=== PATIENT | female | born 1980 | race Caucasian/White ===

== ENCOUNTER 2016-06-17 07:10 | Day surgery (SDC) ==
[2016-06-15 15:45] LABS: AGAP 13; ALBUMIN 4.4 g/dL (3.5-5.0); ALKALINE PHOSPHATASE 51 U/L (32-104); BUN 9 mg/dL (8-22); CALCIUM 9.6 mg/dL (8.8-10.2); CHLORIDE 101 mmol/L (98-107); COSMO 281; GOT 41 U/L (10-30); GPT 46 U/L (10-36); POTASSIUM 4.2 mmol/L (3.5-5.1); SODIUM 141 mmol/L (136-145); TCO2 27 mmol/L (25-35); TOTAL BILIRUBIN 0.34 mg/dL (0.20-1.00); TOTAL PROTEIN 7.2 g/dL (6.3-8.3)
[2016-06-17] MEDS ORDERED: PEPCID ONE (07:22)
[2016-06-17] MEDS ORDERED: REGLAN ONE (07:22)
[2016-06-17] MEDS ORDERED: TRANSDERM-SCOP ONE (07:22)
[2016-06-17] MEDS ORDERED: LR 1,000 ML ONE ×2 (07:23→11:51)
[2016-06-17] MEDS ORDERED: SENSORCAINE 0.25%/EPI 1:200,000 ONE (08:05)
[2016-06-17] MEDS ORDERED: GLUCAGON ONE (08:05)
[2016-06-17] MEDS ORDERED: SODIUM CHLORIDE 0.9% ONE (08:06)
[2016-06-17] MEDS: LR 1,000 ML ONE ×2 (08:47→09:36)
[2016-06-17] MEDS: KEFZOL 1 GM/D5W 50 ML ONE ×2 (08:47→09:36)
[2016-06-17] MEDS ORDERED: MORPHINE ONE ×2 (10:45→11:05)
[2016-06-17] MEDS ORDERED: DIPRIVAN 1% ONE (10:48)
[2016-06-17] MEDS ORDERED: FENTANYL ONE (10:49)
--- NOTE | 2016-06-17 10:51 | Diag Imaging Result Document ---
PROCEDURE NAME: OPERATIVE CHOLANGIOGRAM - 06/17/2016 INTRAOPERATIVE CHOLANGIOGRAM, ONE VIEW: FINDINGS: There is no evidence of obstruction or filling defect in the common bile duct or common hepatic duct. IMPRESSION: No evidence of retained stones.
[2016-06-17] MEDS: MORPHINE ONE ×2 (10:55→11:06)
[2016-06-17] MEDS ORDERED: ZOFRAN IV PRN (11:32)
[2016-06-17] MEDS ORDERED: BUPRENEX IV PRN (11:32)
[2016-06-17] MEDS ORDERED: NORCO-10 PO PRN (11:32)
[2016-06-17] MEDS ORDERED: ROBINUL ONE (11:51)
[2016-06-17] MEDS ORDERED: ZEMURON ONE (11:51)
[2016-06-17] MEDS ORDERED: TORADOL ONE (11:51)
[2016-06-17] MEDS ORDERED: XYLOCAINE-MPF 2% ONE (11:51)
[2016-06-17] MEDS ORDERED: ZOFRAN ONE (11:51)
[2016-06-17] MEDS ORDERED: DECADRON ONE (11:51)
[2016-06-17] MEDS ORDERED: QUELICIN (DOSE) ONE (11:51)
[2016-06-17] MEDS ORDERED: NEOSTIGMINE ONE (11:51)
[2016-06-17 13:05] VITALS: BP 141/77
--- NOTE | 2016-06-17 14:57 | OPERATIVE NOTE ---
PROCEDURE DATE: 06/17/2016 PREOPERATIVE DIAGNOSIS: Chronic calculous cholecystitis. POSTOP DIAGNOSIS: Chronic calculous cholecystitis. PROCEDURE: Laparoscopic cholecystectomy with operative cholangiogram. SURGEONS: Bryan Herbert MD L[employer]IN[employer] ASSEMBLER AND GLUER: IDALMIS Lee. ANESTHESIA: General. ESTIMATED BLOOD LOSS: 5 mL. COMPLICATIONS: None apparent. SPECIMENS: Gallbladder. FINDINGS: The cholangiogram revealed normal proximal hepatic ducts and distal common bile duct. There were no filling defects or stenoses. There was flow of contrast into the duodenum. TECHNIQUE: She was brought to the operating room and placed supine on the table. General anesthesia was induced. She was prepped and draped in usual sterile fashion; 0.25% Marcaine with epinephrine was used to anesthetize our skin incisions. An 11 mm incision was made just above the umbilicus. The fascia was exposed and incised sharply. Entry into the peritoneal cavity was obtained under direct vision with the Optiview device. Pneumoperitoneum was established. The camera was inserted. There was no evidence of injury to underlying structures. She was placed in reverse Trendelenburg and left rotation. Three 5 mm incision ports were placed in the epigastrium and right upper quadrant below the costal margin per usual routine. The dome of the gallbladder was grasped by the technical administrative assistant with an Allis clamp and lifted up superiorly. Fatty adhesions were taken down off the gallbladder bluntly. The triangle of Calot was then dissected out with the [place] forceps and using the hook cautery to incise peritoneal and fibroareolar tissue. The critical view was obtained including the gallbladder liver junction and there were only 2 structures entering the gallbladder, the cystic duct and cystic artery. A clip was placed on the distal cystic duct. A ductotomy was made proximal to this. A 14-gauge Angiocath was passed through the right upper quadrant. The Taut cholangiogram catheter was passed through this into the cystic duct and held in place with a clip. The cholangiogram was performed with findings as noted above. The clip, catheter, and Angiocath were then removed. Two clips were placed on the proximal cystic duct and it was divided distal to these two. The cystic artery was clipped proximally and distally and incised in between with scissors. The gallbladder was then taken off the liver bed using hook cautery, obtaining hemostasis along the way. I inspected the dissection area and there was no signs of any bleeding or bile leakage. We then brought the gallbladder out through the umbilical port site under direct vision. There was a very small amount of bile that spilled out through a small hole in the wall of the gallbladder. No stones were seen. We then closed the umbilical fascia with 2 interrupted 0 Vicryl sutures using the Malcom-Julien device. This was done under direct laparoscopic vision. We then desufflated the abdomen and removed the ports. The skin was closed with running 4-0 subcuticular Monocryl then Steri-Strips. There were no apparent complications. She was transferred to the recovery room in stable condition.
== END 2016-06-17 12:15 | disposition home or self-care (01) ==
LOC: OPS 07:10
PROVIDERS: ATTEND Surgery
DX: K80.10 Calculus of gallbladder with chronic cholecystitis without obstruction (principal); E78.00 Pure hypercholesterolemia, unspecified
CPT/HCPCS: 74300; 80053; 82948; 84703; 88304; C1751; J0330; J0690; J1100; J1610; J1885; J2270; J2405; J3010; J7120; Q9966; J2710